=== PATIENT | male | born 1950 | race Caucasian/White ===

== ENCOUNTER 2016-09-09 08:46 | Outpatient (CLI) | payer BC, MEDICARE | END 2016-09-09 08:47 | disposition home or self-care (01) | DX: G47.33 Obstructive sleep apnea (adult) (pediatric) (principal) ==

== ENCOUNTER 2016-10-07 09:55 | Outpatient (CLI) | payer BC, MEDICARE | END 2016-10-07 09:56 | disposition home or self-care (01) | DX: G47.33 Obstructive sleep apnea (adult) (pediatric) (principal) ==

== ENCOUNTER 2017-02-02 13:21 | Outpatient (CLI) | payer BC, MEDICARE | END 2017-02-02 13:22 | disposition home or self-care (01) | LOC: SC 13:21 | PROVIDERS: ATTEND Nurse Practitioner Family | DX: G47.33 Obstructive sleep apnea (adult) (pediatric) (principal) | CPT/HCPCS: 99212; 99214 ==

== ENCOUNTER 2017-07-30 08:00 | Outpatient (CLI) | payer BC, MEDICARE ==
[2017-07-30 13:08] LABS: BASOPHILS % (AUTO) 0.5 %; EOSINOPHILS # (AUTO) 0.3 10^3/uL (0.0-0.7); EOSINOPHILS % (AUTO) 3.6 %; HCT - HEMATOCRIT 49.6 % (42.0-52.0); HGB - HEMOGLOBIN 16.9 g/dL (14.0-18.0); LYMPHOCYTES # (AUTO) 1.7 10^3/uL (1.5-3.5); LYMPHOCYTES % (AUTO) 20.4 %; MEAN CORPUSCULAR HEMOGLOBIN 29.9 pg (27.0-31.0); MEAN CORPUSCULAR HGB CONC 34.1 g/dL (32.0-36.0); MEAN CORPUSCULAR VOLUME 87.5 fL (80.0-94.0); MEAN PLATELET VOLUME 9.4 fL (7.4-11.4); MONOCYTES # (AUTO) 0.7 10^3/uL (0.0-1.0); MONOCYTES % (AUTO) 8.7 %; NEUTROPHILS # (AUTO) 5.5 10^3/uL (1.5-6.6); NEUTROPHILS % (AUTO) 66.8 %; NUCLEATED RED BLOOD CELLS AUTO 0.1 /100WBC; RED BLOOD COUNT 5.67 10^6/uL (4.70-6.10); RED CELL DISTRIBUTION WIDTH 13.9 % (12.0-15.0); UNCORRECTED WHITE BLOOD COUNT 8.2 x10^3/uL; WHITE BLOOD COUNT 8.2 x10^3/uL (4.8-10.8)
[2017-07-30 13:28] LABS: BILIRUBIN,TOTAL 0.7 mg/dL (0.2-1.0); BUN - BLOOD UREA NITROGEN 12 mg/dL (6-20); CALCIUM 9.4 mg/dL (8.5-10.3); CARBON DIOXIDE - CO2 27 mmol/L (21-32); CHLORIDE 105 mmol/L (101-111); CHOL/HDL RATIO 5.3 (<5.0); CHOLESTEROL 175 mg/dL; CREATININE 1.2 mg/dL (0.6-1.2); GFR - MDRD 61 (>89); GLUCOSE 102 mg/dL (70-100); HDL CHOLESTEROL 33 mg/dL; LDL/HDL RATIO 3.1 (<3.6); POTASSIUM 3.7 mmol/L (3.5-5.0); SODIUM 139 mmol/L (135-145); TRIGLYCERIDES 200 mg/dL; VLDL CHOLESTEROL 40 mg/dL
== END 2017-07-30 08:01 | disposition home or self-care (01) ==
LOC: LAB.WCP 08:00
PROVIDERS: ATTEND Family Medicine
DX: D75.1 Secondary polycythemia (principal); I10 Essential (primary) hypertension; K21.9 Gastro-esophageal reflux disease without esophagitis; E78.5 Hyperlipidemia, unspecified; Z79.899 Other long term (current) drug therapy; C61 Malignant neoplasm of prostate
CPT/HCPCS: 36415; 80053; 80061; 84153; 84443; 85025

== ENCOUNTER 2017-08-16 16:31 | Outpatient (CLI) | payer BC, MEDICARE | END 2017-08-16 16:32 | disposition E | LOC: EMS 16:31 | PROVIDERS: ATTEND Surgery ==